=== PATIENT | female | born 2000 | race Two or more races ===

== ENCOUNTER 2023-10-10 14:17 | Outpatient (CLI) | payer OTHER | END 2023-10-10 14:21 | disposition home or self-care (01) | LOC: PRENATAL 14:17 | PROVIDERS: ATTEND Obstetrics & Gynecology Maternal & Fetal Medicine | DX: O26.849 Uterine size-date discrepancy, unspecified trimester (principal); O30.90 Multiple gestation, unspecified, unspecified trimester; Z3A.16 16 weeks gestation of pregnancy ==

== ENCOUNTER 2024-02-26 02:11 | Inpatient (IN) | payer OTHER ==
[~2024-02-26] VITALS: Ht 157.5 cm; Wt 1.8 kg
[2024-02-26] MEDS ORDERED: AMPICILLIN SODIUM 2,000 MG VIAL IV ONE (02:15)
[2024-02-26] MEDS ORDERED: PRENATABS RX T1 EACH PO (02:18)
[2024-02-26] MEDS ORDERED: RINGERS SOLUTION,LACTATED 1,000 ML IV SCH (02:30)
[2024-02-26] MEDS ORDERED: BETAMETHASONE ACETATE,SOD PHOS 30 MG/5 ML ML IM ONE (02:30)
[2024-02-26 03:14] LABS: HEMATOCRIT 38.3 % (36.0-45.00); MEAN CELL VOLUME 82.3 fL (80.00-100.00); PH,URINE 6.5 (5.0-8.0); PLATELET COUNT 157 K/uL (150-450); RED BLOOD COUNT 4.66 M/uL (4.00-6.00); RED CELL DISTRIBUTION WIDTH 15.2 % (11.5-14.5); URINE APPEARANCE Cloudy; URINE BILIRRUBIN Negative (NEGATIVE); URINE BLOOD Moderate; URINE COLOR Dark Yellow; URINE GLUCOSE Negative (NEGATIVE); URINE KETONE Negative (NEGATIVE); URINE LEUKOCYTE Large; URINE NITRATE Negative; URINE PROTEIN Trace (NEGATIVE)
[2024-02-26 03:18] LABS: URINE BACTERIA 8540.1 uL (0.0-1933); URINE EPITHELIAL CELLS 50.2 uL (0.0-38.8); URINE RBC 251.6 uL (0.0-20.8); URINE WBC 1302.7 uL (0.0-23.2)
[2024-02-26 03:35] LABS: INR < 0.93; PARTIAL THROMBOPLASTIN TIME 27.1 SECONDS (22.0-34.0); PROTHROMBIN TIME 9.6 SECONDS (9.0-11.5)
[2024-02-26 03:44] LABS: URINE CAST 0.91 uL (0.0-1.40)
[2024-02-26 03:45] LABS: URINE CRYSTALS MODERATE /HPF; URINE YEAST FEW /hpf
[2024-02-26] MEDS ORDERED: AMPICILLIN SODIUM 1,000 MG VIAL IV SCH (05:00)
[2024-02-26] MEDS ORDERED: OXYTOCIN 20 UNITS/500ML RL PIGGYBAG IV SCH (19:45)
[2024-02-26] MEDS ORDERED: PROMETHAZINE HCL 25 MG/ML AMPUL ONE (21:44)
[2024-02-26] MEDS ORDERED: MEPERIDINE HCL/PF 25 MG/ML VIAL IV STA (21:52)
[2024-02-26] MEDS ORDERED: PROMETHAZINE HCL 25 MG/ML AMPUL IV STA (21:53)
[2024-02-26] MEDS ORDERED: CHLORHEXIDINE GLUCONATE 120 ML BOTTLE TOP ONE (22:54)
[2024-02-26] MEDS ORDERED: ERYTHROMYCIN BASE 1 GM TUBE OP ONE ×2 (22:54→22:55)
[2024-02-26] MEDS ORDERED: OXYTOCIN 20 UNITS/1000ML RL PIGGYBAG IV ONE (22:54)
[2024-02-26] MEDS ORDERED: LIDOCAINE HCL 1% 10ML VIAL ONE (22:54)
[2024-02-27] MEDS ORDERED: ERYTHROMYCIN BASE 1 GM TUBE OP ONE ×2 (00:49→02:45)
[2024-02-27] MEDS ORDERED: OXYTOCIN 10 UNITS/ML VIAL ONE (00:49)
[2024-02-27] MEDS ORDERED: METHYLERGONOVINE MALEATE 0.2 MG/ML AMPUL ONE (01:19)
[2024-02-27] MEDS ORDERED: CEFOXITIN SODIUM 2,000 MG VIAL IV ONE ×2 (01:21→02:45)
[2024-02-27] MEDS ORDERED: KETOROLAC TROMETHAMINE 60 MG VIAL IM STA (01:55)
[2024-02-27] MEDS ORDERED: PROMETHAZINE HCL 25 MG/ML AMPUL IM PRN (02:00)
[2024-02-27] MEDS ORDERED: RINGERS SOLUTION,LACTATED 1,000 ML IV SCH (02:00)
[2024-02-27] MEDS ORDERED: CHLORHEXIDINE GLUCONATE 120 ML BOTTLE TP SCH (02:00)
[2024-02-27] MEDS ORDERED: ERYTHROMYCIN BASE 1 GM TUBE OP SCH (02:00)
[2024-02-27] MEDS ORDERED: MEPERIDINE HCL/PF 50 MG/ML VIAL IM PRN (02:00)
[2024-02-27] MEDS ORDERED: OXYTOCIN 1,000 ML IV SCH (02:00)
[2024-02-27] MEDS ORDERED: CEFOXITIN SODIUM 2,000 MG in DEXTROSE 5 % IN WATER 100 ML IV SCH (02:01)
[2024-02-27] MEDS ORDERED: OXYTOCIN 10 UNITS/ML VIAL IV ONE (02:45)
[2024-02-27 06:20] LABS: HEMATOCRIT 33.1 % (36.0-45.00); HEMOGLOBIN 11.2 g/dL (12.0-15.00); MEAN CELL VOLUME 82.5 fL (80.00-100.00); MEAN CORPUSCULAR HEMOGLOBIN 27.9 pg (27.00-32.0); MEAN CORPUSCULAR HGB CONC 33.9 g/dl (32.0-36.0); PLATELET COUNT 222 K/uL (150-450); RED BLOOD COUNT 4.01 M/uL (4.00-6.00); RED CELL DISTRIBUTION WIDTH 15.4 % (11.5-14.5)
[2024-02-27] MEDS ORDERED: OxyCODONE HCL/APAP UD (PERCOCET) PO PRN (09:00)
[2024-02-28] MEDS ORDERED: HYDROCORTISONE 2.5% 30 GM TUBE TOP SCH (17:58)
[2024-02-28] MEDS ORDERED: HYDROCORTISONE ACETATE 25 MG/SUPP.RECT SUPP.RECT RECTAL PRN (18:00)
[2024-02-28] MEDS ORDERED: HYDROCORTISONE ACETATE 25 MG/SUPP.RECT SUPP.RECT RECTAL NR (18:00)
== END 2024-03-01 15:51 | disposition home or self-care (01) | DRG 786 ==
LOC: OB/GYN 02:11 → LDR 02:11 → OB/GYN 02-27 03:48
PROVIDERS: ADMIT Obstetrics & Gynecology; ATTEND Obstetrics & Gynecology
PROC: BY4GZZZ Ultrasonography of Third Trimester, Multiple Gestation (ICD-10-PCS; 2024-02-26)
PROC: 4A1HXCZ Monitoring of Products of Conception, Cardiac Rate, External Approach (ICD-10-PCS; 2024-02-26)
PROC: 10E0XZZ Delivery of Products of Conception, External Approach (ICD-10-PCS; 2024-02-27)
PROC: 10D00Z1 Extraction of Products of Conception, Low, Open Approach (ICD-10-PCS; principal; 2024-02-27 08:15)
DX: O32.8XX1 Maternal care for other malpresentation of fetus, fetus 1 (principal); O60.14X2 Preterm labor third trimester with preterm delivery third trimester, fetus 2; O30.043 Twin pregnancy, dichorionic/diamniotic, third trimester; Z3A.36 36 weeks gestation of pregnancy; Z37.2 Twins, both liveborn; Z20.822 Contact with and (suspected) exposure to COVID-19